=== PATIENT | female | born 1995 | race Caucasian/White ===

== ENCOUNTER 2020-03-23 11:35 | Emergency (ER) | payer OTHER ==
[~2020-03-23] VITALS: Ht 167.6 cm; Wt 95.3 kg
[2020-03-23 12:50] VITALS: BP 116/70
== END 2020-03-23 12:50 | disposition home or self-care (01) ==
LOC: M.ERS 11:35
DX: Z20.828 Contact with and (suspected) exposure to other viral communicable diseases (principal)